=== PATIENT | male | born 1965 | race Two or more races ===

== ENCOUNTER 2023-02-15 20:53 | Emergency (ER) | payer OTHER ==
[~2023-02-15] VITALS: Ht 182.9 cm; Wt 131.8 kg
[2023-02-15] MEDS ORDERED: OXYCODONE W/ ACETAMINOPHEN 5/325MG TABLET PO ONE (23:30)
[2023-02-15] MEDS ORDERED: ONDANSETRON ODT 4 MG TAB PO ONE (23:30)
[2023-02-16 00:27] VITALS: BP 153/95; PULSE 66; RESP 20; TEMP 98.4; O2SAT 98
[2023-02-16] MEDS ORDERED: KETOROLAC TROMETH 30 MG/ML 1ML VIAL IM ONE (02:30)
[2023-02-16] MEDS ORDERED: ZOFR4T PO (03:25)
[2023-02-16] MEDS ORDERED: PERCOT PO (03:25)
[2023-02-16] MEDS ORDERED: IBUP-1455 PO (03:25)
[2023-02-16] MEDS ORDERED: HYDROcodone-ACET 5/325MG TAB PO ONE (05:45)
[2023-02-16] MEDS ORDERED: OXYCODONE W/ ACETAMINOPHEN 5/325MG TABLET PO ONE (06:00)
== END 2023-02-16 06:56 | disposition home or self-care (01) ==
LOC: EDBD 20:53 → ER 20:53
DX: R07.81 Pleurodynia (principal); E11.9 Type 2 diabetes mellitus without complications; W01.0XXA Fall on same level from slipping, tripping and stumbling without subsequent striking against object, initial encounter; Y93.89 Activity, other specified; Y92.89 Other specified places as the place of occurrence of the external cause; Y99.8 Other external cause status
CPT/HCPCS: 71046; 71250; 73030; 93005; 96372; 99285; J1885; Q0162